=== PATIENT | female | born 1975 | race Hispanic/Latino ===

== ENCOUNTER → 2025-03-07 | Day surgery (SDC) | payer OTHER ==
[~2025-03-07] MED LIST: CRESTOR40 MG PO; ESMOLOL HCL 100MG/10ML 10 MG/ML VIAL ONE; GLUCAGON FOR INJ 1 MG VIAL ONE; HYOSCYAMINE SULFATE 0.5 MG/ML INJ ONE; LEVOTHYROXINE50 MCG PO; LIDOCAINE HCL 2% LOCAL INJ 5 ML SDV VIAL INJ ONE; MIDAZOLAM HCL 2 MG/2 ML VIAL ONE; PROPOFOL IV EMULSION 10 MG/ML 20 ML VIAL ONE; SODIUM CHLORIDE 0.9% 100 ML ONE
[2025-03-07] MEDS: LACTATED RINGER'S 1,000 ML ONE (06:30)
[2025-03-07 08:28] VITALS: TEMP 98.1
[2025-03-07 09:00] VITALS: BP 108/74; PULSE 92; RESP 16; O2SAT 94
== END | disposition home or self-care (01) ==
LOC: OR 05:57
PROVIDERS: ATTEND Internal Medicine Gastroenterology
DX: Z12.11 Encounter for screening for malignant neoplasm of colon (principal); K62.1 Rectal polyp; K64.8 Other hemorrhoids; E78.5 Hyperlipidemia, unspecified; E03.9 Hypothyroidism, unspecified; Z79.899 Other long term (current) drug therapy
CPT/HCPCS: 36415; 45385; 84702; J1610; J1980; J2003; J2250; J2704; J7050; J7121; 45378